=== PATIENT | female | born 1960 | race Caucasian/White ===

== ENCOUNTER 2017-08-25 09:41 | Emergency (ER) | payer MEDICAID ==
--- NOTE | 2017-08-25 09:51 | EDM.PDOC ---
ED HPI GENERAL MEDICAL PROBLEM - General Chief Complaint: Chest Pain Stated Complaint: FROM CLINIC LEFT ARM HAS PAIN Time Seen by Provider: 08/25/17 10:15 Source of Information: Reports: Patient, Old Records, RN History Limitations: Reports: No Limitations - History of Present Illness INITIAL COMMENTS - FREE TEXT/NARRATIVE: 57 yo female presents with onset last Thursday of L chest pain that began as she was getting ready for bed. Sx'd felt like a stabbing pain not related to breathing. This pain persisted and kept her awake for a few hrs until it subsided. Since then she has had residual L arm pain. Pain is not worsened with using the arm. The arm itself is tender to touch. She recalls no direct injury to the arm. She has not neck pain or limitation of mobility. Coughing slight worsens her sx's. There has not been any nausea, diaphoresis, or SOB. She has no hx of CAD or HTN. She presented to the clinic today and was referred to the ER to assess her sx' s. Onset: Sudden Onset Date: 08/21/17 Duration: Day(s):, Constant Location: Reports: Chest, Upper Extremity, Left Quality: Reports: Dull Severity: Mild Improves with: Reports: Movement Worsens with: Reports: Other (touching arm) Context: Reports: Other (unknown) Associated Symptoms: Reports: Chest Pain. 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 OB/BYN History: HPV Musculoskeletal History: Reports: Other (See Below) Other Musculoskeletal History: occasional back pain Hematologic History: Reports: Other (See Below) Other Hematologic History: hairy cell luekemia Oncologic (Cancer) History: Reports: Leukemia - Past Surgical History Female Surgical History: Reports: Tubal Ligation Social & Family History - Tobacco Use Smoking Status *Q: Never Smoker Second Hand Smoke Exposure: No - Caffeine Use Caffeine Use: Reports: Coffee, Soda, Tea - Recreational Drug Use Recreational Drug Use: No ED ROS GENERAL - Review of Systems Review Of Systems: See Below Constitutional: Reports: No Symptoms HEENT: Reports: No Symptoms Respiratory: Reports: No Symptoms Cardiovascular: Reports: Chest Pain (L anterior, mild) Endocrine: Reports: No Symptoms GI/Abdominal: Reports: No Symptoms : Reports: No Symptoms Musculoskeletal: Reports: Arm Pain (left), Hand Pain (L hand), Muscle Pain (L arm/forearm). Denies: Leg Pain, Joint Pain, Joint Swelling Skin: Reports: No Symptoms Neurological: Reports: No Symptoms Psychiatric: Reports: No Symptoms ED EXAM, GENERAL - Physical Exam Exam: See Below Exam Limited By: No Limitations General Appearance: Alert, WD/WN, No Apparent Distress Eye Exam: Bilateral Eye: Normal Inspection Ears: Normal External Exam, Normal Canal, Hearing Grossly Normal, Normal TMs Ear Exam: Bilateral Ear: Auricle Normal, Canal Normal, TM normal Nose: Normal Inspection, Normal Mucosa, No Blood Throat/Mouth: Normal Inspection, Normal Lips, Normal Oropharynx, Normal Voice, No Airway Compromise Head: Atraumatic, Normocephalic Neck: Normal Inspection, Supple, Non-Tender, Full Range of Motion. No: Lymphadenopathy (R), Lymphadenopathy (L) Respiratory/Chest: No Respiratory Distress, Lungs Clear, Normal Breath Sounds, No Accessory Muscle Use Cardiovascular: Regular Rate, Rhythm, No Edema GI/Abdominal: Normal Bowel Sounds, Soft, Non-Tender, No Distention Back Exam: Normal Inspection. No: CVA Tenderness (R), CVA Tenderness (L) Extremities: Normal Inspection, Normal Range of Motion, Non-Tender, No Pedal Edema Neurological: Alert, Oriented, CN II-XII Intact, Normal Cognition, No Motor/ Sensory Deficits Psychiatric: Normal Affect, Normal Mood Skin Exam: Warm, Dry, Intact, Normal Color, No Rash Lymphatic: No Adenopathy EKG INTERPRETATION EKG Date: 08/25/17 Time: 09:40 Rhythm: NSR Rate (Beats/Min): 86 [place]: Normal P-Wave: Present QRS: Normal ST-T: Normal QT: Normal Comparison: NA - No Prior EKG Course - Vital Signs Last Recorded V/S: Last Vital Signs Temp 36.5 C 08/25/17 09:48 Pulse 83 08/25/17 09:48 Resp 14 08/25/17 09:48 BP Pulse Ox 97 08/25/17 09:48 - Orders/Labs/Meds Orders: Active Orders 24 hr Category Date Time Status EKG Documentation Completion [RC] ASDIRECTED Care 08/25/17 09:43 Active EKG 12 Lead [EK] Routine Ther 08/25/17 09:43 Ordered Labs: Laboratory Tests 08/25/17 08/25/17 Range/Units 10:25 10:27 D-Dimer, Quantitative < 100 (0.0-400.0) ng/mL Troponin I < 0.017 (0.000-0.056) ng/mL C-Reactive Protein 0.39 H (0.0-0.3) mg/dL Departure - Departure Time of Disposition: :17 Disposition: Home, Self-Care 01 Condition: Good Clinical Impression: Chest pain, atypical, Arm pain, left Prescriptions: Meloxicam [Mobic] 15 mg PO DAILY #14 tablet Referrals: PCP,None [Primary Care Provider] - Forms: ED Department Discharge Additional Instructions: Take Mobic every day with a meal. Recheck in the clinic in about a week if sx's persist. - My Orders Last 24 Hours: My Active Orders 08/25/17 09:43 EKG Documentation Completion [RC] ASDIRECTED EKG 12 Lead [EK] Routine - Assessment/Plan Last 24 Hours: My Active Orders 08/25/17 09:43 EKG Documentation Completion [RC] ASDIRECTED EKG 12 Lead [EK] Routine
== END 2017-08-25 11:51 | disposition home or self-care (01) ==
LOC: JP.ED 09:41
DX: R07.89 Other chest pain (principal); M79.602 Pain in left arm; Z88.8 Allergy status to other drugs, medicaments and biological substances
CPT/HCPCS: 36415; 84484; 85379; 86140; 93005; 99285-25

== ENCOUNTER 2022-11-27 11:18 | Emergency (ER) | payer MEDICAID ==
[2022-11-27] MEDS ORDERED: Morphine 4 MG/ML Syringe IVPUSH PRN (11:21)
[2022-11-27] MEDS ORDERED: Sodium Chloride 0.9% 10 ML Syringe FLUSH PRN (11:21)
[2022-11-27] MEDS ORDERED: Ondansetron 4 MG/2 ML SDV IVPUSH ONE (11:25)
[2022-11-27] MEDS: Nitroglycerin 0.4 MG Tab.SL SL PRN ×3 (11:43→12:08)
[2022-11-27 12:04] LABS: ESTIMATED GFR 82 mL/min (>60); TROPONIN I HIGH SENSITIVITY 4.7 pg/mL (<=60.3)
[2022-11-27] MEDS ORDERED: Cyclobenzaprine 10 MG Tab PO ONE (12:08)
[2022-11-27] MEDS ORDERED: Ketorolac 30 MG/ML SDV IVPUSH ONE (12:08)
== END 2022-11-27 13:50 | disposition home or self-care (01) ==
LOC: JP.ED 11:18
DX: R07.89 Other chest pain (principal); Z88.8 Allergy status to other drugs, medicaments and biological substances
CPT/HCPCS: 36415; 71045; 80053; 84484; 85025; 93005; 96374; 99285; A9270; J1885